=== PATIENT | male | born 1940 | race Caucasian/White ===

== ENCOUNTER 2018-07-11 00:21 | Emergency (ER) | payer MEDICARE, OTHER ==
[~2018-07-11] VITALS: Ht 175.3 cm; Wt 63.5 kg
[~2018-07-11 00:21] MED LIST: ADULT LOW DOSE81 MG PO; B-COMPLEX-VITA1 EACH PO; D3 DOTS2000 UNIT PO; FOLIC ACID 40400 MC1 PO; GALZIN25 MG PO; GLUCOSAMINE CH1 EAC7 PO; LASIX 20 MG TAB20 MG PO; LETAIRIS5 MG PO; LIPITOR10 MG PO; LISINOPRIL10 MG PO; MEDROLDOSEPACK PO; MUCINEX DM TABL1 TA1 PO; NEXIUM40 MG PO; OMEGA-31000 MG PO; PLAVIX 75 MG TA75 MG PO; RESTASIS1 EACH OP; SINGULAIR 10 MG10 M1 PO; SYMBICORT160 MCG/4. INH; ZPAK PO
[2018-07-11] MEDS ORDERED: HYDROCODON-ACE1 EAC7 PO (00:48)
[2018-07-11] MEDS ORDERED: KEFLEX500 M1 PO (00:48)
[2018-07-11 00:50] VITALS: BP 145/76
== END 2018-07-11 00:51 | disposition home or self-care (01) ==
LOC: M.ERS 00:21
DX: I80.01 Phlebitis and thrombophlebitis of superficial vessels of right lower extremity (principal); J44.9 Chronic obstructive pulmonary disease, unspecified; Z95.1 Presence of aortocoronary bypass graft

== ENCOUNTER 2018-08-09 18:00 | Emergency (ER) | payer MEDICARE, OTHER ==
[~2018-08-09] VITALS: Ht 182.9 cm; Wt 64.9 kg
[~2018-08-09 18:00] MED LIST changes: -FOLIC ACID 40400 MC1 PO; +FOLIC ACID0.4 MG PO; +HYDROCODON-ACE1 EAC7 PO; +KEFLEX500 M1 PO; -MUCINEX DM TABL1 TA1 PO; +MUCINEX600 MG PO
[2018-08-09] MEDS ORDERED: ELIQUIS5 MG PO (18:15)
[2018-08-09] MEDS ORDERED: CARDIZEM LA360 M1 PO (18:16)
[2018-08-09] MEDS ORDERED: VITAMIN C100 MG PO (18:18)
[2018-08-09] MEDS ORDERED: IRON325 PO (18:18)
[2018-08-09] MEDS ORDERED: CENTRUM SILVER1 EAC2 PO (18:19)
[2018-08-09] MEDS ORDERED: LIPITOR10 MG PO (18:19)
[2018-08-09] MEDS ORDERED: ASPIR 8181 MG PO (18:19)
[2018-08-09 19:46] VITALS: BP 122/64
== END 2018-08-09 19:47 | disposition home or self-care (01) ==
LOC: M.ERS 18:00
DX: R04.0 Epistaxis (principal); M54.2 Cervicalgia; J44.9 Chronic obstructive pulmonary disease, unspecified

== ENCOUNTER 2019-03-16 05:47 | Emergency (ER) | payer MEDICARE, OTHER ==
[~2019-03-16] VITALS: Ht 182.9 cm; Wt 63.5 kg
[~2019-03-16 05:47] MED LIST changes: +ASPIR 8181 MG PO; +CARDIZEM LA360 M1 PO; +CENTRUM SILVER1 EAC2 PO; +ELIQUIS5 MG PO; +IRON325 PO; +VITAMIN C100 MG PO
[2019-03-16 06:05] VITALS: BP 124/62
== END 2019-03-16 06:35 | disposition home or self-care (01) ==
LOC: M.ERS 05:47
DX: S01.512A Laceration without foreign body of oral cavity, initial encounter (principal); J44.9 Chronic obstructive pulmonary disease, unspecified; Z95.1 Presence of aortocoronary bypass graft; Z98.890 Other specified postprocedural states; Z97.0 Presence of artificial eye; X58.XXXA Exposure to other specified factors, initial encounter; Y93.89 Activity, other specified; Y92.89 Other specified places as the place of occurrence of the external cause; Y99.8 Other external cause status